=== PATIENT | male | born 1980 | race Caucasian/White ===

== ENCOUNTER 2018-10-13 17:08 | Inpatient (IN) | payer OTHER ==
[~2018-10-13] VITALS: Ht 182.9 cm; Wt 86.9 kg
[2018-10-13 17:25] LABS: BASO % 1 % (0-3); EOS # 0.2 x10^3/uL (0.0-0.7); EOS % 4 % (0-3); HEMATOCRIT 38.9 % (39.0-53.0); HEMOGLOBIN 13.2 g/dL (13.0-17.5); LYMPH # 1.3 x10^3/uL (1.0-4.8); LYMPH % 36 % (24-48); MEAN CORPUSCULAR HEMOGLOBIN 31 pg (25-35); MEAN CORPUSCULAR HGB CONC 34 g/dL (31-37); MEAN CORPUSCULAR VOLUME 91 fL (79-100); MONO # 0.3 x10^3/uL (0.0-1.1); MONO % 8 % (0-9); NEUT # 1.9 x10^3uL (1.8-7.7); NEUT % 51 % (31-73); PLATELET COUNT 163 x10^3/uL (140-400); RED CELL DISTRIBUTION WIDTH 14.3 % (11.5-14.5); WHITE BLOOD COUNT 3.8 x10^3/uL (4.0-11.0)
[2018-10-13] MEDS ORDERED: IV NORMAL SALINE 1,000ML 1,000 ML IV ONE (17:30)
[2018-10-13 17:39] LABS: ALBUMIN 3.9 g/dL (3.4-5.0); ALBUMIN/GLOBULIN RATIO 1.3 (1.0-1.7); CREATININE 0.9 mg/dL (0.7-1.3); GFR 93.9; TOTAL BILIRUBIN 0.3 mg/dL (0.2-1.0); TOTAL PROTEIN 6.8 g/dL (6.4-8.2)
[2018-10-13 17:41] LABS: BARBITURATES NEG (NEG); BENZODIAZEPINES NEG (NEG); CANNABINOIDS NEG (NEG); COCAINE NEG (NEG); METHADONE NEG (NEG); OPIATES NEG (NEG); PHENCYCLIDINE NEG (NEG)
[2018-10-13 17:42] LABS: AMPHETAMINE/METHAMPHETAMINE NEG (NEG)
--- NOTE | 2018-10-13 17:43 | RAD ---
CT head without contrast PQRS statement: CT scans at this facility use dose reduction including either automated exposure control, iterative reconstructions, and /or weight based radiation dosing via mA and kV modification when appropriate to reduce radiation dose to as low as reasonably achievable. HISTORY: Stuttering speech new onset. TECHNIQUE: [address] imaging skull base to vertex. FINDINGS: No intracranial hemorrhage, mass, hydrocephalus, extra-axial fluid collections or infarction. No acute ischemic changes evident. Orbits, mastoids, paranasal sinuses and bones are unremarkable. IMPRESSION: No acute intracranial CT abnormality. Electronically signed by: Parker Ruff MD (10/13/2018 5:41 PM) [facility]
[2018-10-13 17:47] LABS: BACTERIA,URINE 0 /HPF (0-FEW); BILIRUBIN,URINE NEG (NEG); CLARITY,URINE CLEAR; COLOR,URINE YELLOW; GLUCOSE,URINE NEG (NEG); NITRITE,URINE NEG (NEG); RBC,URINE 0 /HPF (0-2); SQUAMOUS EPITHELIAL CELL,UR OCC /LPF; UROBILINOGEN,URINE 0.2 mg/dL (0.2 mg/dL); WBC,URINE OCC /HPF (0-4)
--- NOTE | 2018-10-13 18:05 | RAD ---
AP chest x-ray HISTORY: Chest pain. FINDINGS: Heart size is normal. Mediastinal silhouette is normal. No pneumothorax, pulmonary opacities or pleural effusions. Shoulder surgery noted. IMPRESSION: No acute process. Electronically signed by: Parker Ruff MD (10/13/2018 6:02 PM) [facility]
--- NOTE | 2018-10-13 18:08 | ED.ADGEN ---
Past History Past Medical History: Cancer, Diabetes, TIA Past Surgical History: Knee Replacement, Other Past Surgical History BILATERAL SHOULDER Upper Palate reconstruction as a child Alcohol Use: None Drug Use: None Adult General Chief Complaint Chief Complaint "...I was just playing cards with my roomie... and I got this central chest pain... 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 The patient denies previous cardiac problems. No recent travel. No history of trauma. Patient reports pain is central and achy. No pleuritic com ponent. Patient rates the pain as 8-9 out of 10. Patient has a strong family history of cardiac disorders with father had NC at age 40 stents, brother who had a NC at age 24, and a uncle who had heart attack age 50. Patient denies any current drug use. Patient originally from [place] and plans return there after his discharge from [facility]. Patient states he has not had a stutter in the past. No other neural complaints. Review of Systems Review of Systems Constitutional: Denies fever or chills [] Eyes: Denies change in visual acuity, redness, or eye pain [] HENT: Denies nasal congestion or sore throat [] Respiratory: Denies cough or shortness of breath [] Cardiovascular: No additional information not addressed in HPI [] GI: Denies abdominal pain, nausea, vomiting, bloody stools or diarrhea [] : Denies dysuria or hematuria [] Musculoskeletal: Denies back pain or joint pain [] Integument: Denies rash or skin lesions [] Neurologic: Denies headache, focal weakness or sensory changes [] Endocrine: Denies polyuria or polydipsia [] All other systems were reviewed and found to be within normal limits, except as documented in this note. Family History Family History Multiple family members had MIs and stents Current Medications Current Medications Current Medications Medications (Trade) Dose Ordered Sig/Lotus Start Time Stop Time Status Last Admin Dose Admin Acetaminophen (Tylenol) 1,000 mg PRN QID PRN 10/13/18 18:45 Enoxaparin Sodium (Lovenox 80mg Syringe) 80 mg 1X ONCE 10/13/18 18:45 10/13/18 18:46 DC 10/13/18 18:39 80 MG Lactated Ringer's 1,000 ml @ 160 mls/hr Q6H15M 10/13/18 18:45 Morphine Sulfate (Morphine 10mg Syringe) 10 mg QIDPRN PRN 10/13/18 18:45 Ondansetron HCl (Zofran) 4 mg PRN Q4HRS PRN 10/13/18 18:45 10/14/18 18:44 Sodium Chloride 1,000 ml @ 1,000 mls/hr 1X ONCE 10/13/18 17:30 10/13/18 18:29 DC 10/13/18 17:48 1,000 MLS/HR See nursing for home meds Allergies Allergies Allergies Coded Allergies Type Severity Reaction Last Updated Verified Penicillins Allergy Unknown 10/13/18 Yes ciprofloxacin Allergy Unknown 10/13/18 Yes ibuprofen Allergy Unknown 10/13/18 Yes naproxen Allergy Unknown 10/13/18 Yes tramadol Allergy Unknown 10/13/18 Yes Physical Exam Physical Exam Constitutional: Reports moderate distress, non-toxic appearance. [] HENT: Normocephalic, atraumatic, bilateral external ears normal, oropharynx moist, no oral exudates, nose normal. [Edentulous. Scar upper lip. Eyes: PERRLA, EOMI, conjunctiva normal, no discharge. [] Neck: Normal range of motion, no tenderness, supple, no stridor. [] Cardiovascular:Heart rate regular rhythm, no murmur [] Lungs & Thorax: Bilateral breath sounds equal at apexes on auscultation [] Abdomen: Bowel sounds normal, soft, no tenderness, no masses, no pulsatile masses. [] Skin: Warm, dry, no erythema, no rash. [] Back: No tenderness, no CVA tenderness. [] Extremities: No tenderness, no cyanosis, no clubbing, ROM intact, no edema. [] Bilateral shoulder scars. No cording. Neurologic: Alert and oriented X 3, normal motor function, normal sensory function, no focal deficits noted. [] Psychologic: Affect anxious, judgement normal, mood normal. [] Current Patient Data Vital Signs Vital Signs Date Time Temp Pulse Resp B/P (MAP) Pulse Ox O2 Delivery O2 Flow Rate FiO2 10/13/18 18:30 77 20 122/63 (82) 98 Room Air 10/13/18 17:08 97.9 Lab Results Laboratory Tests Test 10/13/18 17:15 10/13/18 17:20 White Blood Count 3.8 x10^3/uL (4.0-11.0) L Red Blood Count 4.30 x10^6/uL (4.30-5.70) Hemoglobin 13.2 g/dL (13.0-17.5) Hematocrit 38.9 % (39.0-53.0) L Mean Corpuscular Volume 91 fL (79-100) Mean Corpuscular Hemoglobin 31 pg (25-35) Mean Corpuscular Hemoglobin Concent 34 g/dL (31-37) Red Cell Distribution Width 14.3 % (11.5-14.5) Platelet Count 163 x10^3/uL (140-400) Neutrophils (%) (Auto) 51 % (31-73) Lymphocytes (%) (Auto) 36 % (24-48) Monocytes (%) (Auto) 8 % (0-9) Eosinophils (%) (Auto) 4 % (0-3) H Basophils (%) (Auto) 1 % (0-3) Neutrophils # (Auto) 1.9 x10^3uL (1.8-7.7) Lymphocytes # (Auto) 1.3 x10^3/uL (1.0-4.8) Monocytes # (Auto) 0.3 x10^3/uL (0.0-1.1) Eosinophils # (Auto) 0.2 x10^3/uL (0.0-0.7) Basophils # (Auto) 0.0 x10^3/uL (0.0-0.2) Prothrombin Time 10.0 SEC (9.4-11.4) Prothrombin Time INR 1.0 (0.9-1.1) PTT 27 SEC (23-33) D-Dimer (Noa) < 0.19 mg/L (0.00-0.50) Sodium Level 144 mmol/L (136-145) Potassium Level 4.0 mmol/L (3.5-5.1) Chloride Level 106 mmol/L (98-107) Carbon Dioxide Level 29 mmol/L (21-32) Anion Gap 9 (6-14) Blood Urea Nitrogen 9 mg/dL (8-26) Creatinine 0.9 mg/dL (0.7-1.3) Estimated GFR (Cockcroft-Gault) 93.9 BUN/Creatinine Ratio 10 (6-20) Glucose Level 110 mg/dL (70-99) H Calcium Level 9.0 mg/dL (8.5-10.1) Total Bilirubin 0.3 mg/dL (0.2-1.0) Aspartate Amino Transferase (AST) 15 U/L (15-37) Alanine Aminotransferase (ALT) 32 U/L (16-63) Alkaline Phosphatase 69 U/L (46-116) Troponin I Quantitative < 0.017 ng/mL (0-0.055) Total Protein 6.8 g/dL (6.4-8.2) Albumin 3.9 g/dL (3.4-5.0) Albumin/Globulin Ratio 1.3 (1.0-1.7) Urine Collection Type Unknown Urine Color Yellow Urine Clarity Clear Urine pH 7.0 Urine Specific [place] 1.015 Urine Protein Neg (NEG-TRACE) Urine Glucose (UA) Neg mg/dL (NEG) Urine Ketones (Stick) Neg mg/dL (NEG) Urine Blood Neg (NEG) Urine Nitrite Neg (NEG) Urine Bilirubin Neg (NEG) Urine Urobilinogen Dipstick 0.2 mg/dL (0.2 mg/dL) Urine Leukocyte Esterase Neg (NEG) Urine RBC 0 /HPF (0-2) Urine WBC Occ /HPF (0-4) Urine Squamous Epithelial Cells Occ /LPF Urine Bacteria 0 /HPF (0-FEW) Urine Opiates Screen Neg (NEG) Urine Methadone Screen Neg (NEG) Urine Barbiturates Neg (NEG) Urine Phencyclidine Screen Neg (NEG) Urine Amphetamine/Methamphetamine Neg (NEG) Urine Benzodiazepines Screen Neg (NEG) Urine Cocaine Screen Neg (NEG) Urine Cannabinoids Screen Neg (NEG) Urine Ethyl Alcohol Neg (NEG) EKG EKG I interpretation EKG shows a sinus rhythm at 87 bpm right axis. No findings acute STEMI of contralateral changes[] Radiology/Procedures Radiology/Procedures [][address] [address] IMAGING REPORT Signed PATIENT: YANELIS BURRIS ACCOUNT: [id number] : 1980 LOCATION: ER AGE: 38 SEX: M EXAM STATUS: REG ER ORD. PHYSICIAN: NITA MCMANUS DO REASON: stuttered speech, new onset PROCEDURE: CT HEAD WO CONTRAST CT head without contrast PQRS statement: CT scans at this facility use dose reduction including either automated exposure control, iterative reconstructions, and /or weight based radiation dosing via mA and kV modification when appropriate to reduce radiation dose to as low as reasonably achievable. HISTORY: Stuttering speech new onset. TECHNIQUE: [address] imaging skull base to vertex. FINDINGS: No intracranial hemorrhage, mass, hydrocephalus, extra-axial fluid collections or infarction. No acute ischemic changes evident. Orbits, mastoids, paranasal sinuses and bones are unremarkable. IMPRESSION: No acute intracranial CT abnormality. Electronically signed by: Jalen Ruff MD (10/13/2018 5:41 PM) [facility] DICTATED AND SIGNED BY: JALEN RUFF MD DATE: 10/13/18 116 CC: NITA MCMANUS DO; PCP,NO ~ [id number] [place] [address] IMAGING REPORT Signed PATIENT: YANELIS BURRIS ACCOUNT: [id number] : 1980 LOCATION: ER AGE: 38 SEX: M EXAM STATUS: REG ER ORD. PHYSICIAN: NITA MCMANUS DO REASON: CP ONSET TODAY PROCEDURE: CHEST AP ONLY AP chest x-ray HISTORY: Chest pain. FINDINGS: Heart size is normal. Mediastinal silhouette is normal. No pneumothorax, pulmonary opacities or pleural effusions. Shoulder surgery noted. IMPRESSION: No acute process. Electronically signed by: Jalen Ruff MD (10/13/2018 6:02 PM) [facility] DICTATED AND SIGNED BY: JALEN RUFF MD DATE: 10/13/18 180 CC: NITA MCMANUS DO; MARIA ISABEL MONSON MD; PCP,NO ~ Course & Med Decision Making Course & Med Decision Making Pertinent Labs and Imaging studies reviewed. (See chart for details) Patient will be admitted to Dr. Lagunas for further evaluation and treatment with cardiology consult. Will obtain carotid US. Heart score- 3-4 [] Final Impression Final Impression 1. Chest Pain[] 2. New stutter 3. Hx. DM- on metformin Dragon Disclaimer Dragon Disclaimer This electronic medical record was generated, in whole or in part, using a voice recognition dictation system. Dragon Disclaimer This chart was dictated in whole or in part using Voice Recognition software in a busy, high-work load, and often noisy Emergency Department environment. It may contain unintended and wholly unrecognized errors or omissions. Discharge Summary Visit Information Final Diagnosis Problems Medical Problems: (1) Chest pain Status: Acute Brief Hospital Course Allergies Allergies Coded Allergies Type Severity Reaction Last Updated Verified Penicillins Allergy Unknown 10/13/18 Yes ciprofloxacin Allergy Unknown 10/13/18 Yes ibuprofen Allergy Unknown 10/13/18 Yes naproxen Allergy Unknown 10/13/18 Yes tramadol Allergy Unknown 10/13/18 Yes Vital Signs Vital Signs Date Time Temp Pulse Resp B/P (MAP) Pulse Ox O2 Delivery O2 Flow Rate FiO2 10/13/18 18:30 77 20 122/63 (82) 98 Room Air 10/13/18 17:08 97.9 Lab Results Laboratory Tests Test 10/13/18 17:15 10/13/18 17:20 White Blood Count 3.8 x10^3/uL (4.0-11.0) Red Blood Count 4.30 x10^6/uL (4.30-5.70) Hemoglobin 13.2 g/dL (13.0-17.5) Hematocrit 38.9 % (39.0-53.0) Mean Corpuscular Volume 91 fL (79-100) Mean Corpuscular Hemoglobin 31 pg (25-35) Mean Corpuscular Hemoglobin Concent 34 g/dL (31-37) Red Cell Distribution Width 14.3 % (11.5-14.5) Platelet Count 163 x10^3/uL (140-400) Neutrophils (%) (Auto) 51 % (31-73) Lymphocytes (%) (Auto) 36 % (24-48) Monocytes (%) (Auto) 8 % (0-9) Eosinophils (%) (Auto) 4 % (0-3) Basophils (%) (Auto) 1 % (0-3) Neutrophils # (Auto) 1.9 x10^3uL (1.8-7.7) Lymphocytes # (Auto) 1.3 x10^3/uL (1.0-4.8) Monocytes # (Auto) 0.3 x10^3/uL (0.0-1.1) Eosinophils # (Auto) 0.2 x10^3/uL (0.0-0.7) Basophils # (Auto) 0.0 x10^3/uL (0.0-0.2) Prothrombin Time 10.0 SEC (9.4-11.4) Prothromb Time International Ratio 1.0 (0.9-1.1) Activated Partial Thromboplast Time 27 SEC (23-33) D-Dimer (Noa) < 0.19 mg/L (0.00-0.50) Sodium Level 144 mmol/L (136-145) Potassium Level 4.0 mmol/L (3.5-5.1) Chloride Level 106 mmol/L (98-107) Carbon Dioxide Level 29 mmol/L (21-32) Anion Gap 9 (6-14) Blood Urea Nitrogen 9 mg/dL (8-26) Creatinine 0.9 mg/dL (0.7-1.3) Estimated GFR (Cockcroft-Gault) 93.9 BUN/Creatinine Ratio 10 (6-20) Glucose Level 110 mg/dL (70-99) Calcium Level 9.0 mg/dL (8.5-10.1) Total Bilirubin 0.3 mg/dL (0.2-1.0) Aspartate Amino Transf (AST/SGOT) 15 U/L (15-37) Alanine Aminotransferase (ALT/SGPT) 32 U/L (16-63) Alkaline Phosphatase 69 U/L (46-116) Troponin I Quantitative < 0.017 ng/mL (0-0.055) Total Protein 6.8 g/dL (6.4-8.2) Albumin 3.9 g/dL (3.4-5.0) Albumin/Globulin Ratio 1.3 (1.0-1.7) Urine Collection Type Unknown Urine Color Yellow Urine Clarity Clear Urine pH 7.0 Urine Specific [place] 1.015 Urine Protein Neg (NEG-TRACE) Urine Glucose (UA) Neg mg/dL (NEG) Urine Ketones (Stick) Neg mg/dL (NEG) Urine Blood Neg (NEG) Urine Nitrite Neg (NEG) Urine Bilirubin Neg (NEG) Urine Urobilinogen Dipstick 0.2 mg/dL (0.2 mg/dL) Urine Leukocyte Esterase Neg (NEG) Urine RBC 0 /HPF (0-2) Urine WBC Occ /HPF (0-4) Urine Squamous Epithelial Cells Occ /LPF Urine Bacteria 0 /HPF (0-FEW) Urine Opiates Screen Neg (NEG) Urine Methadone Screen Neg (NEG) Urine Barbiturates Neg (NEG) Urine Phencyclidine Screen Neg (NEG) Urine Amphetamine/Methamphetamine Neg (NEG) Urine Benzodiazepines Screen Neg (NEG) Urine Cocaine Screen Neg (NEG) Urine Cannabinoids Screen Neg (NEG) Urine Ethyl Alcohol Neg (NEG) Brief Hospital Course Mr. Burris is a 38 old [place] male prisoner who presented with chest pain. Admitted to Dr. Carrion with Cardiology consult. Discharge Information Condition at Discharge: Stable Dischare Medications Current Medications Sodium Chloride 1,000 ml @ 1,000 mls/hr 1X ONCE IV Last administered on 10/13/18at 17:48; Admin Dose 1,000 MLS/HR; Start 10/13/18 at 17:30; Stop 10/13/18 at 18:29; Status DC Enoxaparin Sodium (Lovenox 80mg Syringe) 80 mg 1X ONCE SQ Last administered on 10/13/18at 18:39; Admin Dose 80 MG; Start 10/13/18 at 18:45; Stop 10/13/18 at 18:46; Status DC Ondansetron HCl (Zofran) 4 mg PRN Q4HRS PRN IV NAUSEA/VOMITING; Start 10/13/18 at 18:45; Stop 10/14/18 at 18:44 Lactated Ringer's 1,000 ml @ 160 mls/hr Q6H15M IV ; Start 10/13/18 at 18:45 Morphine Sulfate (Morphine 10mg Syringe) 10 mg QIDPRN PRN SQ Marked pain; Start 10/13/18 at 18:45 Acetaminophen (Tylenol) 1,000 mg PRN QID PRN PO pain, fever; Start 10/13/18 at 18:45 MARIA ISABEL MONSON MD Oct 13, 2018 18:08
[2018-10-13] MEDS ORDERED: ONDANSETRON PF 4 MG/2 ML VIAL. IV PRN (18:45)
[2018-10-13] MEDS ORDERED: ENOXAPARIN ** NOTE DOSE ** SYRINGE SQ ONE (18:45)
[2018-10-13] MEDS ORDERED: ACETAMINOPHEN 500 MG TABLET PO PRN (18:45)
[2018-10-13] MEDS ORDERED: MORPHINE SULFATE 10 MG/ML SYRINGE. SQ PRN (18:45)
[2018-10-13 19:05] VITALS: BP 115/84
[2018-10-13] MEDS: MORPHINE SULFATE 4 MG/ML DISP.SYRIN. IV PRN (20:46)
[2018-10-13 21:00] VITALS: BP 114/70
[2018-10-13] MEDS ORDERED: DULO60CA6 PO (22:34)
[2018-10-13] MEDS ORDERED: MIRT30TA2 PO (22:34)
[2018-10-13] MEDS ORDERED: ATOR10TA PO (22:34)
[2018-10-13] MEDS ORDERED: RISP2TAB3 PO (22:34)
[2018-10-13] MEDS ORDERED: MIRT30TA PO (22:38)
[2018-10-13 22:58] VITALS: BP 106/63
[2018-10-13] MEDS ORDERED: DULoxetine HCL 60 MG CAPSULE.DR PO SCH (23:00)
[2018-10-13] MEDS ORDERED: MIRTAZAPINE 15 MG TABLET PO SCH (23:00)
[2018-10-13] MEDS: IV RINGERS SOLUTION,LACTATED 1,000 ML IV SCH (23:16)
[2018-10-13] MEDS: IPRATRPIUM/ALBUTEROL 0.5/2.5MG 3 ML NEBU. NEB SCH (23:17)
[2018-10-13] MEDS ORDERED: ATORVASTATIN CALCIUM 10 MG TABLET. PO SCH (23:30)
[2018-10-13] MEDS: risperiDONE 1 MG TABLET. PO SCH (23:34)
[2018-10-14] MEDS: MORPHINE SULFATE 4 MG/ML DISP.SYRIN. IV PRN ×3 (00:55→09:20)
[2018-10-14 01:01] VITALS: BP 107/59
[2018-10-14] MEDS: IV RINGERS SOLUTION,LACTATED 1,000 ML IV SCH (05:28)
[2018-10-14] MEDS: IPRATRPIUM/ALBUTEROL 0.5/2.5MG 3 ML NEBU. NEB SCH (05:50)
[2018-10-14 05:56] LABS: BASO # 0.1 x10^3/uL (0.0-0.2); BASO % 1 % (0-3); EOS # 0.2 x10^3/uL (0.0-0.7); EOS % 5 % (0-3); HEMATOCRIT 34.7 % (39.0-53.0); HEMOGLOBIN 11.9 g/dL (13.0-17.5); LYMPH # 1.5 x10^3/uL (1.0-4.8); LYMPH % 32 % (24-48); MEAN CORPUSCULAR HEMOGLOBIN 31 pg (25-35); MEAN CORPUSCULAR HGB CONC 34 g/dL (31-37); MEAN CORPUSCULAR VOLUME 90 fL (79-100); MONO # 0.4 x10^3/uL (0.0-1.1); MONO % 8 % (0-9); NEUT # 2.6 x10^3uL (1.8-7.7); NEUT % 55 % (31-73); PLATELET COUNT 143 x10^3/uL (140-400); RED BLOOD COUNT 3.84 x10^6/uL (4.30-5.70); RED CELL DISTRIBUTION WIDTH 14.1 % (11.5-14.5); WHITE BLOOD COUNT 4.8 x10^3/uL (4.0-11.0)
[2018-10-14 06:06] LABS: CALCIUM 8.5 mg/dL (8.5-10.1); CREATININE 0.9 mg/dL (0.7-1.3); GFR 93.9
[2018-10-14 06:16] VITALS: BP 113/72
[2018-10-14] MEDS ORDERED: ACET325T9 PO (07:12)
[2018-10-14] MEDS ORDERED: METF10007 PO (07:12)
[2018-10-14] MEDS ORDERED: ASPI-630 PO (07:12)
--- NOTE | 2018-10-14 07:17 | PDOC2 ---
CARDIAC CONSULT DATE OF CONSULT Date Of Consult DATE: 10/14/18 TIME: 07:11 REASON FOR CONSULT Reason for Consult Chest pain REFERRING PHYSICIAN Referring Physician Dr. Carmen SOURCE Source: Chart review, Patient HPI History of Present Illness This is a 38 yo male who presented from [facility] secondary to chest pain and new onset of stutter. Patient reports he was sitting playing with roommate when he had a sudden onset of left chest heaviness/tightness. Radiated to his left shoulder and down his left arm. Associated with shortness of breath and diaphoresis. Decided to lay down. Then had episode of nausea/vomiting. Pain persisted so he decided to fo the the ED for further evaluation and treatment. Pain seemed to worsen with activity. Improved with nitro in ED. Pain presently 2/10. No prior experience with similar pain or previous cardiac workup. 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 Reports family h/o CAD with father having multiple stents. Thinks first stent were in his early 40's. Also has brother with coronary stent. Patient reports new onset of stutter yesterday. In obtaining HPI, stutter seemed to fade with further discussion. Stutter returned when specifically questioned regarding symptoms/onset. Is in [facility] secondary to unpaid fines. Is serving 90-day term. Has 32 days remaining. PAST MEDICAL HISTORY Cardiovascular: hyperipidemia Pulmonary: No pertinent hx CENTRAL NERVOUS SYSTEM: TIA GI: No pertinent hx Heme/Onc: Cancer (osteosarcoma ) Hepatobiliary: No pertinent hx Psych: Bipolar, Depression Musculoskeletal: No pertinent hx Rheumatologic: No pertinent hx Infectious disease: Other (meningitis ) ENT: No pertinent hx Renal/: No pertinent hx Endocrine: Diabetes Dermatology: No pertinent hx PAST SURGICAL HISTORY Past Surgical History: Total hip replacement (bilateral ), Other (cleft palate surgery, bilateral shoulder surgery ) FAMILY HISTORY Family History: Coronary Artery Disease SOCIAL HISTORY Smoke: No ALCOHOL: none Drugs: None Lives: Roommate ([facility] ) CURRENT MEDICATIONS Current Medications Current Medications Sodium Chloride 1,000 ml @ 1,000 mls/hr 1X ONCE IV Last administered on 10/13/18at 17:48; Start 10/13/18 at 17:30; Stop 10/13/18 at 18:29; Status DC Enoxaparin Sodium (Lovenox 80mg Syringe) 80 mg 1X ONCE SQ Last administered on 10/13/18at 18:39; Start 10/13/18 at 18:45; Stop 10/13/18 at 18:46; Status DC Ondansetron HCl (Zofran) 4 mg PRN Q4HRS PRN IV NAUSEA/VOMITING; Start 10/13/18 at 18:45; Stop 10/14/18 at 18:44 Albuterol/ Ipratropium (Duoneb) 3 ml RTQID NEB Last administered on 10/14/18at 05:50; Start 10/13/18 at 20:00; Stop 10/14/18 at 19:59 Enoxaparin Sodium (Lovenox 80mg Syringe) 80 mg BID SQ ; Start 10/14/18 at 09:00 Lactated Ringer's 1,000 ml @ 160 mls/hr Q6H15M IV Last administered on 10/14/18at 05:28; Start 10/13/18 at 18:45 Morphine Sulfate (Morphine 10mg Syringe) 10 mg QIDPRN PRN SQ Marked pain; Start 10/13/18 at 18:45; Stop 10/13/18 at 20:28; Status DC Acetaminophen (Tylenol) 1,000 mg PRN QID PRN PO pain, fever; Start 10/13/18 at 18:45 Aspirin (Children'S Aspirin) 81 mg DAILY PO ; Start 10/14/18 at 09:00 Morphine Sulfate (Morphine 4mg Syringe) 4 mg PRN Q4HRS PRN IV PAIN Last administered on 10/14/18at 05:50; Start 10/13/18 at 20:30 Mirtazapine (Remeron) 45 mg HS PO ; Start 10/14/18 at 21:00; Stop 10/14/18 at 21:00; Status DC Atorvastatin Calcium (Lipitor) 10 mg QHS PO ; Start 10/14/18 at 21:00; Stop 10/14/18 at 21:00; Status DC Duloxetine HCl (Cymbalta) 60 mg HS PO ; Start 10/14/18 at 21:00; Stop 10/14/18 at 21:00; Status DC Risperidone (RisperDAL) 2 mg BID PO ; Start 10/14/18 at 09:00; Stop 10/14/18 at 09:00; Status DC Duloxetine HCl (Cymbalta) 60 mg HS PO Last administered on 10/13/18at 23:34; Start 10/13/18 at 23:00 Mirtazapine (Remeron) 45 mg HS PO Last administered on 10/13/18at 23:35; Start 10/13/18 at 23:00 Risperidone (RisperDAL) 2 mg BID PO Last administered on 10/13/18at 23:34; Start 10/13/18 at 23:00 Atorvastatin Calcium (Lipitor) 10 mg QHS PO Last administered on 10/13/18at 23:35; Start 10/13/18 at 23:30 Active Scripts Active Reported Remeron (Mirtazapine) 30 Mg Tablet 45 Mg PO HS Lipitor (Atorvastatin Calcium) 10 Mg Tablet 1 Tab PO QHS Cymbalta (Duloxetine Hcl) 60 Mg Capsule.dr 60 Mg PO HS Risperidone 2 Mg Tablet 2 Mg PO BID ALLERGIES Allergies: Coded Allergies: Penicillins (Verified Allergy, Unknown, 10/13/18) ciprofloxacin (Verified Allergy, Unknown, 10/13/18) ibuprofen (Verified Allergy, Unknown, 10/13/18) naproxen (Verified Allergy, Unknown, 10/13/18) tramadol (Verified Allergy, Unknown, 10/13/18) ROS Review of Systems 14 point ROS conducted with pertinent positives noted above in HPI. PHYSICAL EXAM General: Alert, Oriented X3, Cooperative, No acute distress HEENT: Atraumatic, Mucous membr. moist/pink Lungs: Clear to auscultation, Normal air movement Heart: Regular rate, Normal S1, Normal S2, No murmurs Abdomen: Soft, No tenderness Extremities: No edema, Normal pulses Skin: No breakdown Neuro: Normal speech, Sensation intact Psych/Mental Status: Mental status NL, Mood NL MUSCULOSKELETAL: No deformity VITALS Vital Signs Vital Signs Date Time Temp Pulse Resp B/P (MAP) Pulse Ox O2 Delivery O2 Flow Rate FiO2 10/14/18 06:45 97 Room Air 10/14/18 06:16 97.0 66 10 113/72 (86) LABS LABS Laboratory Tests Test 10/13/18 17:15 10/13/18 17:20 10/13/18 21:00 10/14/18 01:20 White Blood Count 3.8 x10^3/uL (4.0-11.0) Red Blood Count 4.30 x10^6/uL (4.30-5.70) Hemoglobin 13.2 g/dL (13.0-17.5) Hematocrit 38.9 % (39.0-53.0) Mean Corpuscular Volume 91 fL (79-100) Mean Corpuscular Hemoglobin 31 pg (25-35) Mean Corpuscular Hemoglobin Concent 34 g/dL (31-37) Red Cell Distribution Width 14.3 % (11.5-14.5) Platelet Count 163 x10^3/uL (140-400) Neutrophils (%) (Auto) 51 % (31-73) Lymphocytes (%) (Auto) 36 % (24-48) Monocytes (%) (Auto) 8 % (0-9) Eosinophils (%) (Auto) 4 % (0-3) Basophils (%) (Auto) 1 % (0-3) Neutrophils # (Auto) 1.9 x10^3uL (1.8-7.7) Lymphocytes # (Auto) 1.3 x10^3/uL (1.0-4.8) Monocytes # (Auto) 0.3 x10^3/uL (0.0-1.1) Eosinophils # (Auto) 0.2 x10^3/uL (0.0-0.7) Basophils # (Auto) 0.0 x10^3/uL (0.0-0.2) Prothrombin Time 10.0 SEC (9.4-11.4) Prothromb Time International Ratio 1.0 (0.9-1.1) Activated Partial Thromboplast Time 27 SEC (23-33) D-Dimer (Noa) < 0.19 mg/L (0.00-0.50) Sodium Level 144 mmol/L (136-145) Potassium Level 4.0 mmol/L (3.5-5.1) Chloride Level 106 mmol/L (98-107) Carbon Dioxide Level 29 mmol/L (21-32) Anion Gap 9 (6-14) Blood Urea Nitrogen 9 mg/dL (8-26) Creatinine 0.9 mg/dL (0.7-1.3) Estimated GFR (Cockcroft-Gault) 93.9 BUN/Creatinine Ratio 10 (6-20) Glucose Level 110 mg/dL (70-99) Calcium Level 9.0 mg/dL (8.5-10.1) Total Bilirubin 0.3 mg/dL (0.2-1.0) Aspartate Amino Transf (AST/SGOT) 15 U/L (15-37) Alanine Aminotransferase (ALT/SGPT) 32 U/L (16-63) Alkaline Phosphatase 69 U/L (46-116) Troponin I Quantitative < 0.017 ng/mL (0-0.055) < 0.017 ng/mL (0-0.055) < 0.017 ng/mL (0-0.055) Total Protein 6.8 g/dL (6.4-8.2) Albumin 3.9 g/dL (3.4-5.0) Albumin/Globulin Ratio 1.3 (1.0-1.7) Urine Collection Type Unknown Urine Color Yellow Urine Clarity Clear Urine pH 7.0 Urine Specific Okay 1.015 Urine Protein Neg (NEG-TRACE) Urine Glucose (UA) Neg mg/dL (NEG) Urine Ketones (Stick) Neg mg/dL (NEG) Urine Blood Neg (NEG) Urine Nitrite Neg (NEG) Urine Bilirubin Neg (NEG) Urine Urobilinogen Dipstick 0.2 mg/dL (0.2 mg/dL) Urine Leukocyte Esterase Neg (NEG) Urine RBC 0 /HPF (0-2) Urine WBC Occ /HPF (0-4) Urine Squamous Epithelial Cells Occ /LPF Urine Bacteria 0 /HPF (0-FEW) Urine Opiates Screen Neg (NEG) Urine Methadone Screen Neg (NEG) Urine Barbiturates Neg (NEG) Urine Phencyclidine Screen Neg (NEG) Urine Amphetamine/Methamphetamine Neg (NEG) Urine Benzodiazepines Screen Neg (NEG) Urine Cocaine Screen Neg (NEG) Urine Cannabinoids Screen Neg (NEG) Urine Ethyl Alcohol Neg (NEG) Test 10/14/18 05:48 White Blood Count 4.8 x10^3/uL (4.0-11.0) Red Blood Count 3.84 x10^6/uL (4.30-5.70) Hemoglobin 11.9 g/dL (13.0-17.5) Hematocrit 34.7 % (39.0-53.0) Mean Corpuscular Volume 90 fL (79-100) Mean Corpuscular Hemoglobin 31 pg (25-35) Mean Corpuscular Hemoglobin Concent 34 g/dL (31-37) Red Cell Distribution Width 14.1 % (11.5-14.5) Platelet Count 143 x10^3/uL (140-400) Neutrophils (%) (Auto) 55 % (31-73) Lymphocytes (%) (Auto) 32 % (24-48) Monocytes (%) (Auto) 8 % (0-9) Eosinophils (%) (Auto) 5 % (0-3) Basophils (%) (Auto) 1 % (0-3) Neutrophils # (Auto) 2.6 x10^3uL (1.8-7.7) Lymphocytes # (Auto) 1.5 x10^3/uL (1.0-4.8) Monocytes # (Auto) 0.4 x10^3/uL (0.0-1.1) Eosinophils # (Auto) 0.2 x10^3/uL (0.0-0.7) Basophils # (Auto) 0.1 x10^3/uL (0.0-0.2) Sodium Level 144 mmol/L (136-145) Potassium Level 4.0 mmol/L (3.5-5.1) Chloride Level 108 mmol/L (98-107) Carbon Dioxide Level 27 mmol/L (21-32) Anion Gap 9 (6-14) Blood Urea Nitrogen 8 mg/dL (8-26) Creatinine 0.9 mg/dL (0.7-1.3) Estimated GFR (Cockcroft-Gault) 93.9 Glucose Level 90 mg/dL (70-99) Calcium Level 8.5 mg/dL (8.5-10.1) ASSESSMENT/PLAN Assessment/Plan 1. Chest pain; concerns for UA. Troponin series normal- AMI ruled out. 2. Hyperlipidemia; statin 3. Diabetes, II 4. H/o osteosarcoma s/p shoulder and hip replacement 5. 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 R/b/a discussed with patient and he is agreeable. Will transfer to [facility] for [facility] this afternoon. Keep GREGORY WILSON APRN Oct 14, 2018 07:17
--- NOTE | 2018-10-14 08:50 | RAD ---
Examination: DOPPLER CAROTID BILAT History: Mental status change Comparison/Correlation: 10/13/2018 CT head without contrast Technique: Duplex sonography of the cervical portion of both carotid arteries was performed. Real-time grayscale, color flow Doppler, and Doppler spectral waveform analysis is performed. Findings: Right side: Peak systolic flow velocity of the CCA is 109 cm/sec. Peak systolic flow velocity of the ICA is 88 cm/sec. The ICA/CCA ratio is 0.81. Peak end diastolic flow velocity of the ICA is 40 cm/sec. The peak systolic velocity of the ECA is 76 cm/sec. No significant plaque formation is identified. Left side: Peak systolic flow velocity of the CCA is 122 cm/sec. Peak systolic flow velocity of the ICA is 97 cm/sec. The ICA/CCA ratio is 1.05. Peak end diastolic flow velocity of the ICA is 97 cm/sec. Peak systolic flow velocity of the ECA is 72 cm/sec. No significant plaque formation is identified. Vertebral arteries: Bilateral vertebral arteries demonstrate antegrade flow. IMPRESSION: No hemodynamically significant internal carotid artery stenosis is identified. No significant plaque. Unremarkable exam. PQRS Compliance Statement - Stenosis calculations for CT, MR and conventional angiography are based upon measurement of the distal ICA diameter in accordance with the NASCET methodology. Stenosis calculations for carotid ultrasound studies are derived from validated velocity criteria which are known to correlate with the NASCET methodology. Electronically signed by: Flip Bonner MD (10/14/2018 8:46 AM) [id number]
[2018-10-14] MEDS: risperiDONE 1 MG TABLET. PO SCH (09:00)
[2018-10-14] MEDS ORDERED: ASPIRIN 81 MG TAB.CHEW PO SCH (09:00)
[2018-10-14] MEDS ORDERED: risperiDONE 1 MG TABLET. PO SCH (09:00)
[2018-10-14] MEDS ORDERED: ENOXAPARIN ** NOTE DOSE ** SYRINGE SQ SCH (09:00)
[2018-10-14 12:24] VITALS: BP 114/70
--- NOTE | 2018-10-14 14:14 | CARD ---
MR#: [id number] Date of Study: 10/14/2018 Ordering Physician: GREGORY NAM, Referring Physician: PRITI LANCASTER, Tech: Haydee Mancilla APPROVED REPORT EXAM: Two-dimensional and M-mode echocardiogram with Doppler and color Doppler. INDICATION Chest Pain RISK FACTORS Diabetes 2D DIMENSIONS RVDd3.0 (2.9-3.5cm)Left Atrium(2D)3.9 (1.6-4.0cm) IVSd1.1 (0.7-1.1cm)Aortic Root(2D)2.9 (2.0-3.7cm) LVDd4.7 (3.9-5.9cm)LVOT Diameter2.2 (1.8-2.4cm) PWd1.0 (0.7-1.1cm)LVDs2.9 (2.5-4.0cm) FS (%) 38.0 %SV70.2 ml LVEF(%)68.2 (>50%) Aortic Valve AoV Peak Nikita.121.0cm/sAoV VTI24.8cm AO Peak GR.5.9mmHgLVOT Peak Nikita.116.8cm/s LVOT VTI 24.91cmAO Mean GR.3mmHg GAETANO (VMAX)3.07on1RWL (VTI)3.96cm2 Mitral Valve MV E Qoglmixy95.9cm/sMV DECEL [id number] MV A Avcislhj17.7cm/sE/A Ratio1.7 Pulmonary Valve PV Peak Vyqhyozr117.5cm/sPV Peak Grad.4mmHg Tricuspid Valve TR P. Uheuiwts085cz/sRAP PPKHRGRT4ydJc TR Peak Gr.73hfAoTCNO75hvVl Pulmonary Vein S1 Ofdrgyvz20.1cm/sD2 Qiafutnx27.9cm/s LEFT VENTRICLE The left ventricle is normal size. There is borderline concentric left ventricular hypertrophy. The l eft ventricular systolic function is normal. The Ejection Fraction is 60-65%. There is normal LV segm ental wall motion. The left ventricular diastolic function and filling is normal for age. RIGHT VENTRICLE The right ventricle is normal size. There is normal right ventricular wall thickness. The right ventr icular systolic function is normal. ATRIA The left atrium size is normal. The right atrium size is normal. The interatrial septum is intact wit h no evidence for an atrial septal defect or patent foramen ovale as noted on 2-D or Doppler imaging. AORTIC VALVE The aortic valve is normal in structure and function. Doppler and Color Flow revealed no significant aortic regurgitation. There is no significant aortic valvular stenosis. MITRAL VALVE The mitral valve is normal in structure and function. There is no evidence of mitral valve prolapse. There is no mitral valve stenosis. Doppler and Color-flow revealed trace mitral regurgitation. TRICUSPID VALVE The tricuspid valve is normal in structure and function. Doppler and Color Flow revealed trace tricus pid regurgitation with an estimated PAP of 28 mmHg. There is no tricuspid valve stenosis. PULMONIC VALVE The pulmonary valve is normal in structure and function. Doppler and Color Flow revealed trace pulmon ic valvular regurgitation. There is no pulmonic valvular stenosis. GREAT VESSELS The aortic root is normal in size. The IVC is normal in size and collapses >50% with inspiration. PERICARDIAL EFFUSION There is no evidence of significant pericardial effusion. Critical Notification Critical Value: No <Conclusion> The left ventricular systolic function is normal. The Ejection Fraction is 60-65%. There is normal LV segmental wall motion. Trace mitral regurgitation. Trace tricuspid regurgitation with an estimated PAP of 28 mmHg. There is no evidence of significant pericardial effusion. Signed by : Willam Correa, Electronically Approved : 10/14/2018 14:14:06
[2018-10-14] MEDS ORDERED: ATORVASTATIN CALCIUM 10 MG TABLET. PO SCH (21:00)
[2018-10-14] MEDS ORDERED: DULoxetine HCL 60 MG CAPSULE.DR PO SCH (21:00)
[2018-10-14] MEDS ORDERED: MIRTAZAPINE 15 MG TABLET PO SCH (21:00)
--- NOTE | 2018-10-14 22:38 | SSS ---
ADMIT DATE: HISTORY OF PRESENT ILLNESS: The patient is a 38-year-old male patient who apparently is an inmate at [facility] serving the 90-day sentence for non-payment fine who basically presented with a new stutter central chest pain for the last 2 hours prior to arrival to the Emergency Room. He stated that he did have some nausea and vomiting. He rated the chest pain as an 8/10. His pain also radiates to the left arm. The pain has been on and off and has a very strong family history in that his father has first heart attack at the age of 40 and his baby brother has also stent in his heart. He is diabetic. A decision was made to admit him to rule out myocardial infarction. 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 PAST SURGICAL HISTORY: Significant for cleft lip and palate reconstruction. He stated that he underwent bilateral total hip arthroplasty, bilateral shoulder replacement and appendectomy. ALLERGIES: He is ALLERGIC TO PENICILLIN, CIPROFLOXACIN, IBUPROFEN, NAPROXEN and TRAMADOL. FAMILY HISTORY: He has 1 older sister and 3 younger brothers. The baby brother who is 24 has had myocardial infarction at the age of 24. His father had the heart attack when he was 40. His uncle had heart attack at the age of 50. His mother is alive at age of 59 and apparently healthy. SOCIAL HISTORY: He is , has 1 daughter and 5 sons. He never smoked, does not drink alcohol or use any recreational drugs. 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 He is originally from [place] and he plans to return there after his discharge from [facility]. REVIEW OF SYSTEMS: The patient denied any blurring of vision, cataract, glaucoma or macular degeneration. Denied any earache, tinnitus or sensorineural deafness. Denied any nosebleeds, stuffy nose or postnasal drip. Denied any sore throat, sore tongue, toothache, hoarseness of voice or difficulty swallowing. Did have nausea initially when his pain started, but has no further episodes of nausea or vomiting. Denied any diarrhea or constipation. Denied any hematemesis, melena, hematochezia. Denied any dysuria, frequency or hematuria. Denied any exertional dyspnea, orthopnea or paroxysmal nocturnal dyspnea. PHYSICAL EXAMINATION: GENERAL: On arrival to the Emergency Room, he looked well and was clearly in no apparent respiratory distress. No pallor, jaundice, cyanosis or thyromegaly. No jugular venous distention. No limb edema. VITAL SIGNS: His heart rate was 96, blood pressure 122/63, temperature was 97.9, respiratory rate was 18, and oxygen saturation 100%. HEENT: Showed normocephalic, atraumatic. NECK: Supple. HEART: Showed normal first and second heart sounds. No gallop, rub or murmur. CHEST: Clear to auscultation. No crepitation or rhonchi. ABDOMEN: Distended, soft, nontender. NEUROLOGIC: He is awake, alert, responding appropriately. All his cranial nerves are intact. EXTREMITIES: He moves extremities without difficulty, ambulates without assistance or assistive devices. LABORATORY DATA: Showed a white cell count 3800, hemoglobin 13, hematocrit 38, MCV 91, platelet count of 163,000. His serum sodium was 144, potassium 4, chloride 106, bicarbonate 29, anion gap of 9, BUN 9, creatinine 0.9, estimated GFR was 94 mL per minute. Glucose was 110, calcium was 9. Total bilirubin, AST, ALT, alkaline phosphatase were normal. Total protein was 6.8, albumin 3.9. His prothrombin time was 10, INR of 1, aPTT 27 and D-dimer was less than 0.19. Urinalysis showed the urine was yellow, clear with a pH of 7, specific gravity 1.015. The urine was essentially negative. There are no rbc's, occasional wbc's, and no bacteria. His toxicology screen was negative. Has had a CT scan of the head, which showed that there is no intracranial hemorrhage, mass, hydrocephalus, extraaxial fluid collection or infarction. No acute ischemic changes evident. Orbits and mastoids, paranasal sinuses and bones are unremarkable. His chest x-ray showed that the patient's heart size is normal. Mediastinal silhouette is normal. No pneumothorax, pulmonary opacities, pleural effusion, shoulder surgery noted and a carotid Doppler showed that no hemodynamically significant internal carotid artery stenosis identified. No significant plaque, unremarkable exam. The patient has 3 sets of cardiac enzymes that were negative and ruled out myocardial infarction. ASSESSMENT AND PLAN: The patient was evaluated by the Cardiology team and there was concern for unstable angina given that he has strong family history and has diabetes, history of transient ischemic attack. His metformin was held and the patient will be transferred to [facility] for left heart catheterization. PRITI LANCASTER MD DR: KALI/robin JOB#: [id number] / [id number]
--- NOTE | 2018-10-15 03:56 | CONS ---
DATE OF CONSULTATION: 10/14/2018 NEUROLOGIC CONSULTATION. REFERRING PHYSICIAN: Dr. Carrion. REASON FOR CONSULTATION: Rule out TIA. HISTORY OF PRESENT ILLNESS: This is a 38-year-old right-handed male who is an inmate at [facility], was admitted through Emergency Room on 10/13/2018 on account of left-sided chest pain radiating to the left upper extremity and associated with nausea and numbness and paresthesia. The symptoms have been acute in onset. He denies any vomiting, shortness of breath or palpitation, dysarthria, dysphagia, headaches or visual disturbances. Neuro consult was requested to rule out transient ischemic attack versus stroke. However, the patient did complain of intermittent numbness and paresthesia of the left upper and lower extremity, but he denies weakness. Initial nonenhanced head CT scan revealed no evidence of acute intracranial process. Currently, the patient continues to complain of left-sided chest pain radiating to the left shoulder. He stated his pain is at 9/10 on pain scale. PAST MEDICAL HISTORY: Significant for hyperlipidemia, peripheral neuropathy, depressions, bipolar disorder, meningitis and diabetes mellitus. The patient stated he had a history of "mini stroke" without significant neurological residuals and related that to stress. PAST SURGICAL HISTORY: Significant for bilateral total hip replacement, cleft palate surgery and bilateral shoulder surgery. FAMILY HISTORY: Strongly positive for coronary artery disease. His brother had myocardial infarction at the age of 24. His uncle had a heart attack at the age of 50. His father had myocardial infarction at the age of 40, he is alive and he acquired a stent placement. SOCIAL HISTORY: The patient denies smoking, alcohol drinking, or illicit drug use. CURRENT HOME MEDICATIONS: Include Lipitor 10 mg p.o. at bedtime, Cymbalta 60 mg p.o. for depression, mirtazapine 45 mg daily, risperidone 2 mg b.i.d., aspirin 81 mg daily. CURRENT HOSPITAL MEDICATIONS: Include Lovenox 80 mg once subcutaneous daily, albuterol nebulizer, morphine 10 mg q.i.d. p.r.n. for chest pain. ALLERGIES: PENICILLIN, CIPROFLOXACIN, IBUPROFEN, NAPROXEN, AND TRAMADOL. REVIEW OF SYSTEMS: A 10-point review of systems was performed and as mentioned above in the history of present illness consistent with left-sided chest pain radiating to the left shoulder and associated with numbness and paresthesia. PHYSICAL EXAMINATION: GENERAL: Well-developed, well-nourished male, not in acute distress. He weighs 86.8 kilos. VITAL SIGNS: Blood pressure 130/72, respiratory rate 14, pulse is 66 and regular, temperature 97, oxygen saturation 97% on room air. HEENT: Normocephalic, atraumatic, otherwise unremarkable. NECK: Supple. Negative for carotid bruit, lymphadenopathy or thyromegaly. LUNGS: Clear to A and P. CARDIOVASCULAR: Regular rate and rhythm, normal S1, S2. There is no S3, S4 or murmur. ABDOMEN: Soft. Bowel sounds positive. EXTREMITIES: Negative for cyanosis, clubbing or edema. NEUROLOGIC EXAMINATION: 1. MENTAL STATUS: The patient is alert and oriented x 3. Speech is fluent. There is no language dysfunction. Memory, judgment, and abstract thinking are normal. The patient denies hallucination or delusion. 2. CRANIAL NERVES: Visual soler are full. The pupils are reactive to light and accommodation. The extraocular movements are intact. There is no nystagmus. There is no facial motor or sensory deficit. Hearing is intact bilaterally. The palate is elevated symmetrically. Sternocleidomastoid muscles are powerful bilaterally. The patient shrugs his shoulders symmetrically, protrudes his tongue in the midline without fasciculation or atrophy. 3. MOTOR: No focal muscle bulk was seen. The tone is normal. The strength is 5/5 throughout. 4. SENSORY: Revealed diminished pinprick and light touch senses in patchy distribution in both lower extremities. Deep tendon reflexes were symmetric with absent Achilles responses. Gait not tested at this time. DIAGNOSTIC DATA: Nonenhanced head CT scan revealed no evidence of acute intracranial process. EKG revealed normal sinus rhythm at 87 without evidence of STEMI. A chest x-ray revealed no acute cardiopulmonary process and a carotid Doppler study revealed no significant carotid stenosis. LABORATORY DATA: CBC revealed white blood cells of 4800, hemoglobin 11.9, hematocrit 34.7, platelet count 143,000. Chemistry revealed sodium of 144, potassium 4, chloride 108, CO2 27, BUN 8, creatinine 0.9, glucose 90, calcium 8.5. Urinalysis is negative for urinary tract infection. Urine drug screen is negative. IMPRESSION: 1. Acute chest pain, etiology rule out cardiac versus noncardiac. 2. Possible peripheral neuropathy in the lower extremities secondary to underlying diabetes mellitus. 3. Multiple psychiatric problems including bipolar disorder, depressions, and anxiety. 4. Hyperlipidemia. 5. Strong family history of early coronary artery disease. RECOMMENDATIONS: 1. The patient has been scheduled to have a cardiac catheterization. 2. We will continue with current management initiated by Dr. Carrion. No further neurological testing is recommended at this time. M Zana ALLEN MD DR: DONG/robin JOB#: [id number] / [id number]
--- NOTE | 2018-10-17 07:41 | EKG ---
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
--- NOTE | 2018-10-17 07:42 | EKG ---
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
== END 2018-10-14 13:37 | disposition short-term general hospital (02) | DRG 311 ==
LOC: ER 17:08 → EEVIPCON 17:08 → ICU 18:55
PROVIDERS: ADMIT Internal Medicine; ATTEND Internal Medicine
DX: I20.0 Unstable angina (principal); E11.42 Type 2 diabetes mellitus with diabetic polyneuropathy; E78.5 Hyperlipidemia, unspecified; F31.9 Bipolar disorder, unspecified; F41.9 Anxiety disorder, unspecified; Z79.82 Long term (current) use of aspirin; Z79.899 Other long term (current) drug therapy; Z96.611 Presence of right artificial shoulder joint; Z96.612 Presence of left artificial shoulder joint; Z96.643 Presence of artificial hip joint, bilateral; Z96.659 Presence of unspecified artificial knee joint; Z82.49 Family history of ischemic heart disease and other diseases of the circulatory system; Z83.3 Family history of diabetes mellitus; Z85.830 Personal history of malignant neoplasm of bone; Z86.61 Personal history of infections of the central nervous system; Z86.73 Personal history of transient ischemic attack (TIA), and cerebral infarction without residual deficits; Z87.730 Personal history of (corrected) cleft lip and palate; Z88.0 Allergy status to penicillin; Z88.8 Allergy status to other drugs, medicaments and biological substances
CPT/HCPCS: 36415; 70450; 71045; 80048; 80053; 80061; 80307; 81001; 82947; 84484; 85025; 85379; 85610; 85730; 87641; 93005; 93306; 93880; 96372; J1650; J2270; J7120; J7620; 99285-25; J7030